=== PATIENT | male | born 1970 | race Caucasian/White ===

== ENCOUNTER → 2016-08-22 | Outpatient (REF) | payer BC | LOC: M LAB REF 08-21 16:28 | PROVIDERS: ATTEND Surgery | DX: L82.1 Other seborrheic keratosis (principal) ==

== ENCOUNTER 2022-11-20 19:29 | Emergency (ER) | payer BC ==
[~2022-11-20] VITALS: Ht 195.6 cm; Wt 74.5 kg
== END 2022-11-20 19:48 | disposition left against medical advice (07) ==
LOC: M ED 19:29
DX: Z53.21 Procedure and treatment not carried out due to patient leaving prior to being seen by health care provider (principal)